=== PATIENT | male | born 2005 | race Caucasian/White ===

== ENCOUNTER 2025-02-19 19:51 | Emergency (ER) | payer BC, SELFPAY ==
--- OUTSIDE RECORDS SUMMARY | 2025-02-19 19:52 | XMS_ITS | Clinical Summary ---
Author Organization [facility] Address [address] [place] [id number] Care Team Providers Care Conche Operator Name Role Phone No Ref-Primary, Physician Primary Care Provider Allergies No known active allergies Medications No known medications Social History Tobacco Use Types Packs/Day Years Used Date Smoking Tobacco: Never Assessed Sex and Gender Information Value Date Recorded Sex Assigned at Not on file Legal Sex Male 4:38 AM [facility] Gender Identity Not on file Sexual Orientation Not on file Last Filed Vital Signs Vital Sign Reading Time Taken Comments Blood Pressure - - Pulse - - Temperature 36.8 C (98.3 F) 05/19/2019 10:02 AM [facility] Respiratory Rate - - Oxygen Saturation - - Inhaled Oxygen Concentration - - Weight 61.7 kg (136 lb) 05/19/2019 10:02 AM [facility] Height - - Body Mass Index - - Plan of Treatment Not on file Insurance [employer] [facility] [employer] Care Teams Conche Operator Relationship Specialty Start Date End Date No Ref-Primary, Physician PCP - General 05/19/19
[2025-02-19 20:08] VITALS: BP 115/63; PULSE 61; RESP 19; TEMP 37.1; O2SAT 97; BMI 25.9
--- NOTE | 2025-02-19 21:09 | ED.GENADULT ---
HPI - General Adult General Date Seen: 02/19/25 Chief complaint: Laceration/Wound Stated complaint: cut leg at work Time Seen by Provider: 02/19/25 21:08 History of Present Illness HPI narrative: 19-year-old generally healthy male who is up-to-date on his tetanus (last tetanus 2016) presenting to the ER today for a laceration on his right distal medial thigh. 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 He had a little bit of bleeding that was controlled at work. He put a dressing on the wound and washed up at home. He initially did not want to come to the hospital but after showed his family a may notice that the wound edges were gaping and there was exposed subcutaneous adipose tissue, they convinced him to come to the ER. He is not having much pain. No bleeding. No other injury. No trouble bending or flexing his knee. No associated numbness or weakness. Related Data Allergies Allergy/AdvReac Type Severity Reaction Status Date / Time No Known Drug Allergies Allergy Verified 02/19/25 20:11 [facility] Social History Smoking Status: Never smoker Do you use any of these nicotine containing products: None How often do you have a drink containing alcohol: monthly or less How often do you have six or more drinks on one occasion: Never AUDIT-C Alcohol total score: 1 Non-prescribed substance use: denies use service: No Exam Narrative: Exam Narrative: Constitutional: Appears well-developed and well-nourished. Active. Non-toxic appearing. HENT: Head: Atraumatic. No signs of injury. Nose: No nasal discharge. Mouth/Throat: Mucous membranes are moist. No trismus. Eyes: Conjunctivae normal and EOM are normal. Pupils are equal, round, and reactive to light. Right eye exhibits no discharge. Left eye exhibits no discharge. No icterus. Neck: Normal range of motion. Neck supple. No adenopathy. No stridor. Cardiovascular: Normal cap refill. Skin is pink, warm, well perfused. No bleeding. Pulmonary/Chest: Effort normal. No stridor. No respiratory distress. Musculoskeletal: Normal range of motion. No edema. No tenderness. No deformity. He does have a 2 cm laceration on the distal portion of the medial distal right thigh. It does gape about 1 cm at at the middle and there is exposed subcutaneous adipose tissue. No active bleeding. No foreign body. No associated muscle or tendon deficit. Normal flexion extension of his hip and knee. Neurological: Alert. Normal strength. No cranial nerve deficit or sensory deficit. Coordination normal. GCS eye subscore is 4. GCS verbal subscore is 5. GCS motor subscore is 6. Skin: Skin is warm. No rash noted. Const: Vital Signs, click to edit/add: Vital Signs - 24 hr 02/19/25 20:08 Temperature 98.8 F Pulse Rate [Right Pulse Oximeter] 61 Respiratory Rate 19 Blood Pressure [Ri ght Upper Arm] 115/63 Pulse Oximetry 97 Oxygen Delivery Me thod Room Air Course Vital Signs Vital signs: Initial Vital Signs Temperature 98.8 F 02/19/25 20:08 Temperature Source Temporal Artery Scan 02/19/25 20:08 Pulse Rate 61 02/19/25 20:08 Pulse Rhythm Regular 02/19/25 20:08 Pulse Strength 3+ Normal 02/19/25 20:08 Respiratory Rate 19 02/19/25 20:08 Blood Pressure 115/63 02/19/25 20:08 Blood Pressure Mean 80 02/19/25 20:08 Blood Pressure Position Sitting 02/19/25 20:08 Pulse Oximetry 97 02/19/25 20:08 Oxygen Delivery Method Room Air 02/19/25 20:08 Vital Signs Temperature 98.8 F 02/19/25 20:08 Pulse Rate 61 02/19/25 20:08 Respiratory Rate 19 02/19/25 20:08 Blood Pressure 115/63 02/19/25 20:08 Pulse Oximetry 97 02/19/25 20:08 Oxygen Delivery Method Room Air 02/19/25 20:08 Temperature 98.8 F 02/19/25 20:08 Pulse Rate 61 02/19/25 20:08 Respiratory Rate 19 02/19/25 20:08 Blood Pressure 115/63 02/19/25 20:08 Pulse Oximetry 97 02/19/25 20:08 Oxygen Delivery Method Room Air 02/19/25 20:08 Medical Decision Making MDM Narrative Medical decision making narrative: Findings and exam are consistent with an uncomplicated laceration which was repaired as noted above. There is no evidence at this time to suggest any associated fracture or foreign body. There is no evidence to suggest tendon or arterial injury and patient is neurologically in tact. The patient is to follow up for suture removal as instructed in 8 days. Indications to seek urgent reevaluation and signs of infection (including but not limited to increasing pain, redness, swelling, fevers, and drainage) were reviewed. Tetanus is up-to-date. This is a clean and non-contaminated wound in which prophylactic antibiotics are not indicated. An understanding of the discharge instructions and need for follow up were verbally confirmed. Discharge Plan Discharge Clinical Impression: Laceration of right lower extremity Patient Disposition: Home, Self-Care Condition: Stable Instructions: Laceration (DC) Additional Instructions: As we discussed, please watch her wounds for signs of infection such as redness, swelling, or pus draining from the cut. If you have any concerns, please return to the ER right away to be rechecked To care for your wound, wash it gently once per day, with a gauze soaked in warm water. After the wound is gently cleaned, let it dry or dab it dry and then reapply antibiotic ointment and a dressing. Please try to avoid submerging the wound under water. Please follow-up with your regular doctor or urgent care to have the sutures removed in 8 days (next Sunday). You should avoid strenuous activities, running, lifting heavy objects, or activities that cause your leg to get wet or dirty until the stitches are out. Follow Up/Referrals: Provider,Not a Local [Primary Care Provider, Family Practice] Stand Alone Forms: Work/School Release, [facility] Info Instructions Procedures Laceration Right thigh laceration: Pre procedure diagnosis: Right thigh laceration Verification/time out: correct patient and correct procedure (Verbal consent) Site: lower extremity Side (If applicable): right Size (cm): 2 Depth: simple, single layer Local Anesthetic: lidocaine 1% and with epi Amount of anesthesia used (mL): 5 Pre-repair: wound explored and deep structures intact (Scrubbed with sterile saline and gauze. Here gated.) Size (cm): 5-0 Number of sutures: 3 Technique: simple, interrupted
== END 2025-02-19 22:00 | disposition home or self-care (01) ==
LOC: ED 22:01
PROVIDERS: Emergency Provider Emergency Medicine
DX: S71.111A Laceration without foreign body, right thigh, initial encounter (principal); X78.8XXA Intentional self-harm by other sharp object, initial encounter; Y99.0 Civilian activity done for income or pay
CPT/HCPCS: 12001; 99282; 99283

== ENCOUNTER 2025-03-27 08:10 | Outpatient (CLI) | payer OTHER, SELFPAY | END 2025-03-27 08:11 | disposition home or self-care (01) | LOC: LKVREF 08:12 | PROVIDERS: Visit Provider Family Medicine | DX: Z00.00 Encounter for general adult medical examination without abnormal findings (principal) | CPT/HCPCS: 80048; 80061; 86703 ==